=== PATIENT | male | born 1980 | race Caucasian/White ===

== ENCOUNTER → 2022-08-23 | Outpatient (CLI) | payer BC ==
--- NOTE | 2022-08-23 17:02 | Diagnostic Imaging Report ---
EXAMINATION: Right knee radiographs, 3 views. COMPARISON: None. HISTORY: 41-year-old male, right knee pain. FINDINGS: The patella is normally positioned. There is no right knee joint effusion. There is no identified acute fracture. Joint spaces are well preserved. IMPRESSION: Unremarkable radiographs of the right knee. Dictated by: Dictated on workstation # [id number]
== END ==
LOC: ORTHO 11:25
PROVIDERS: ATTEND Orthopaedic Surgery
DX: M25.561 Pain in right knee (principal)
CPT/HCPCS: 73562; G0463; 99203

== ENCOUNTER 2022-10-27 06:41 | Day surgery (SDC) | payer BC ==
[2022-10-27] VITALS (10 sets, daily range): BP systolic 118–153; BP diastolic 80–103
[~2022-10-27] VITALS: Ht 185.4 cm; Wt 150.8 kg
[2022-10-27] MEDS ORDERED: ceFAZolin INJECTION 2,000 MG in NS (IVPB) 50 ML 50 ML IV ONE (06:45)
[2022-10-27] MEDS ORDERED: LACTATED RINGERS 1,000 ML IV PRN (06:45)
[2022-10-27] MEDS ORDERED: LIDOCAINE PF 2% 5 ML (XYLOCAINE) VIAL ONE (07:08)
[2022-10-27] MEDS ORDERED: ONDANSETRON 4 MG/2 ML (SDV) Z0FRAN ONE ×2 (07:08→09:46)
[2022-10-27] MEDS ORDERED: MIDAZOLAM 2 MG/2 ML (VERSED) VIAL ONE ×2 (07:08→07:24)
[2022-10-27] MEDS ORDERED: fentaNYL INJ 100 MCG/2 ML AMP ONE ×2 (07:08→08:08)
[2022-10-27] MEDS ORDERED: dexAMETHasone INJ 10 MG/ML 1 ML VIAL ONE (07:08)
[2022-10-27] MEDS ORDERED: proPOfol 200 MG/20 ML (DIPRIVAN) VIAL IV ONE (07:08)
[2022-10-27] MEDS ORDERED: LIDOCAINE/EPI 1%-1:100,000 (XYLOCAINE) 20ML ONE (07:14)
[2022-10-27] MEDS ORDERED: BUPIVACAINE 0.25% 30 ML VIAL ONE (07:14)
[2022-10-27] MEDS ORDERED: MIDAZOLAM 2 MG/2 ML (VERSED) VIAL IVP ONE (07:30)
[2022-10-27] MEDS ORDERED: SEVOFLURANE (ULTANE) 15 ML INHAL SOLN ONE (08:33)
--- NOTE | 2022-10-27 08:57 | Operative Report - Ortho ---
Operative Report Surgeon (s)/Bone Char Kiln Tender (s) Surgeon FAYE WINTERS MD Bone Char Kiln Tender n/a Pre-Operative Diagnosis RIGHT KNEE LATERAL MENISCUS TEAR Post-Operative Diagnosis same Operative Report Date of Procedure: Oct 27, 2022 Name of Procedure Performed: Right Knee Arthroscopy with Partial Lateral Meniscectomy Description & Findings After obtaining informed consent and marking the patient in the preoperative holding area, the patient was administered IV antibiotics and taken to the operating room. General anesthesia was induced. The left lower extremity was placed in the well leg rosales and the right leg was placed in the arthroscopic roslaes. Surgical timeout was taken. The right lower extremity was prepped and draped in the usual sterile fashion. An anterolateral portal was established and a diagnostic knee arthroscopy was performed with the following findings: the patellofemoral portion of the joint demonstrated grade II change, the patella tracked well through the trochlear groove, the gutters were free of loose bodies, the medial meniscus was intact, grade II change in the medial compartment, ACL was intact, lateral compartment with anterior horn lateral meniscus tear and grade III change on the femoral side articular cartilage and grade II on the lateral tibial plateau. An anteromedial portal was established. Probe was inserted and the meniscal tear was explored. Shaver was inserted and the meniscal tear was debrided to a stable border. Basket biter was inserted and meniscal tear was grossly debrided. Shaver was reinserted and meniscectomy was fine tuned. Shaver was used to stabilize flap tears in the articular cartilage on the femoral side as well. Probe was reinserted and confirmed that the mensicectomy was stable. Instruments were withdrawn. Wounds were closed with 3-0 nylon and dressed with xeroform, 4x4s, ABD, cast padding, and VALERIANO wrap. Patient tolerated the procedure well and was stable to the recovery room. Anesthesia Type General Estimated Blood Loss minimal Specimen(s) collected/removed None FAYE WINTERS MD Oct 27, 2022 08:57
[2022-10-27] MEDS ORDERED: OXC5T PO (08:59)
[2022-10-27] MEDS ORDERED: ONDANSETRON 4 MG/2 ML (SDV) Z0FRAN IVP ONE ×2 (10:00→11:45)
--- NOTE | 2022-10-27 12:03 | Anesthesia-General Post-Op ---
General Patient Condition Mental Status/LOC: Same as Preop Cardiovascular: Satisfactory Nausea/Vomiting: Absent Respiratory: Satisfactory Pain: Controlled Complications: Absent Post Op Complications Complications None Follow Up Care/Instructions Patient Instructions None needed. Anesthesia/Patient Condition Patient Condition Patient is doing well, no complaints, stable vital signs, no apparent adverse anesthesia problems. No complications reported per nursing. MARC SETHI CRNA Oct 27, 2022 12:03
== END 2022-10-27 11:45 | disposition home or self-care (01) ==
LOC: SDC 06:41
PROVIDERS: ATTEND Orthopaedic Surgery
DX: S83.281A Other tear of lateral meniscus, current injury, right knee, initial encounter (principal); E66.01 Morbid (severe) obesity due to excess calories; Z68.41 Body mass index [BMI] 40.0-44.9, adult
CPT/HCPCS: 87081

== ENCOUNTER → 2022-11-09 | Outpatient (CLI) | payer BC ==
[~2022-11-09] MED LIST: OXC5T PO
== END ==
LOC: ORTHO 10:34
PROVIDERS: ATTEND Orthopaedic Surgery
DX: Z47.89 Encounter for other orthopedic aftercare (principal)